=== PATIENT | male | born 1965 | race African-American/Black ===

== ENCOUNTER 2023-09-04 11:31 | Outpatient (CLI) | payer MEDICAID ==
[2023-09-04 18:33] LABS: CREATININE,URINE 154.2 mg/dL
[2023-09-04 18:35] LABS: MICROALBUMIN,URINE < 0.7 mg/dL
[2023-09-04 21:06] LABS: ESTIMATED AVERAGE GLUCOSE 128 mg/dL (70-100); HEMOGLOBIN A1c% 6.1 % (4.27-6.07)
== END 2023-09-04 11:32 | disposition home or self-care (01) ==
LOC: LAB.N 11:31
PROVIDERS: ATTEND Nurse Practitioner
DX: E11.9 Type 2 diabetes mellitus without complications (principal)
CPT/HCPCS: 36415; 82043; 82570; 83036

== ENCOUNTER 2023-10-23 10:37 | Outpatient (CLI) | payer MEDICAID ==
[2023-10-23 13:40] LABS: CREATININE,URINE 173.4 mg/dL
[2023-10-23 14:21] LABS: MICROALBUMIN,URINE < 0.7 mg/dL
== END 2023-10-23 10:38 | disposition home or self-care (01) ==
LOC: LAB.N 10:37
PROVIDERS: ATTEND Nurse Practitioner
DX: E11.9 Type 2 diabetes mellitus without complications (principal)
CPT/HCPCS: 82043; 82570

== ENCOUNTER 2023-11-06 07:49 | Day surgery (SDC) | payer BC, MEDICAID ==
[2023-11-06] MEDS ORDERED: PROPOFOL 500 MG/50 ML 500 MG/50 ML VIAL ONE (08:19)
[2023-11-06] MEDS ORDERED: MIDAZOLAM 2 MG/2 ML VIAL ONE (08:21)
[2023-11-06] MEDS: LACTATED RINGERS 1,000 ML IV ONE ×2 (08:25→09:00)
--- NOTE | 2023-11-06 08:33 | ANESTHESIA ---
Pre-Anesthesia VS, & Labs - Diagnosis SCREENING - Procedure COLONOSCOPY Vital Signs: Temp Pulse Resp BP Pulse Ox O2 Flow Rate 36.0 C L 72 14 114/81 H 100 11/06/23 08:00 11/06/23 08:00 11/06/23 08:00 11/06/23 08:00 11/06/23 08:00 Height: 5 ft 9 in Weight (kg): 81.1 kg Body Mass Index: 26.4 BMI Classification: Overweight - NPO Last Fluid Intake: 0430 Last Food Intake: >8HR - Lab Results Current Lab Results: Laboratory Tests 11/06/23 08:20: POC Whole Bld Glucose 119 H Home Medications and Allergies Home Medications: Ambulatory Orders Atorvastatin [Lipitor] 20 mg PO QPM 11/05/23 Lactobacillus Combination No.4 [Probiotic] 1 each PO 11/05/23 [place]-3S/Dha/Epa/Fish Oil [Fish Oil 1,200 mg Softgel] 1 cap PO 11/05/23 Iron Fum,Ps/Folic Acid/Vitc/B3 [Iron Folate-F Capsule] 1 each PO DAILY 09/04/23 Mv-Min/Folic/K1/Lycopen/Lutein [Centrum Men 50 Plus Minis Tab] 1 each PO DAILY 09/04/23 Red Beet Root/Sour [place] Ext [Beet Root-Tart [place] Gummy] 1 each PO DAILY 09/04/23 Tumeric/Ging/[place]/Oreg/Capryl [Candicidal Capsule] 1 each PO DAILY 09/04/23 metFORMIN [Glucophage] 500 mg PO BIDWM 09/04/23 Atorvastatin [Lipitor] 20 mg PO QPM 11/05/23 Lactobacillus Combination No.4 [Probiotic] 1 each PO 11/05/23 [place]-3S/Dha/Epa/Fish Oil [Fish Oil 1,200 mg Softgel] 1 cap PO 11/05/23 Allergies/Adverse Reactions: Allergies Allergy/AdvReac Type Severity Reaction Status Date / Time No Known Drug Allergies Allergy Verified 09/04/23 10:52 Anes History & Medical History - Anesthetic History Anesthesia Complications: reports: No previous complications Family history of Anesthesia Complications: Denies - Medical History Cardiovascular: reports: None (DENIES CP/SOB; ACTIVE; IS A [employer]), High cholesterol Pulmonary: reports: None Gastrointestinal: reports: None Urinary: reports: None Musculoskeletal: reports: None Endocrine/Autoimmune: reports: Type 2 diabetes Skin: reports: None Smoking Status: Never smoker Psychosocial: reports: No issues indicated Results - EKG Results EKG Comparison: Reviewed EKG Exam General: Alert Dental: WNL Mouth Openin Fingerbreadth Neck Mobility: Normal Mallampati classification: II Thyromental Distance: 4-6 cm Respiratory: Lungs clear Cardiovascular: Regular rate Plan Anesthesia Type: Total IV Consent for Procedure(s) Verified and Reviewed: Yes Code Status: Attempt Resuscitation ASA classification: 2-Mild systemic disease Is this case an emergency?: No
[2023-11-06 09:47] VITALS: BP 120/81; O2SAT 99
--- NOTE | 2023-11-06 09:58 | ANESTHESIA POST OP EVALUATION ---
Anesthesia Post Eval - Post Anesthesia Eval Vitals: Last Vital Signs Temp 36.1 C L 11/06/23 09:30 Pulse 81 11/06/23 09:30 Resp 16 11/06/23 09:30 BP 120/81 H 11/06/23 09:30 Pulse Ox 99 11/06/23 09:30 O2 Flow Rate CV Function Including HR & BP: Stable Pain Control: Satisfactory Nausea & Vomiting: Negative Mental Status: Baseline Respiratory Status: Airway Patent Hydration Status: Satisfactory Anesthesia Complications: None
== END 2023-11-06 07:50 | disposition home or self-care (01) ==
LOC: SDS 07:49
PROVIDERS: ATTEND Surgery
DX: Z12.11 Encounter for screening for malignant neoplasm of colon (principal); E11.9 Type 2 diabetes mellitus without complications; Z79.84 Long term (current) use of oral hypoglycemic drugs
CPT/HCPCS: 45378; J7120

== ENCOUNTER 2024-01-26 07:23 | Outpatient (CLI) | payer BC ==
[2024-01-26 12:51] LABS: CHOL/HDL RATIO 2.3 (<5.0); CHOLESTEROL 103 mg/dL; HDL CHOLESTEROL 44 mg/dL; LDL CHOLESTEROL,CALCULATED 50 mg/dL; LDL/HDL RATIO 1.1 (<3.6); TRIGLYCERIDES 45 mg/dL; VLDL CHOLESTEROL 9 mg/dL
[2024-01-26 13:36] LABS: ESTIMATED AVERAGE GLUCOSE 123 mg/dL (70-100); HEMOGLOBIN A1c% 5.9 % (4.27-6.07)
== END 2024-01-26 07:24 | disposition home or self-care (01) ==
LOC: LAB.N 07:23
PROVIDERS: ATTEND Nurse Practitioner
DX: Z51.81 Encounter for therapeutic drug level monitoring (principal); E11.9 Type 2 diabetes mellitus without complications; E78.5 Hyperlipidemia, unspecified; Z79.899 Other long term (current) drug therapy
CPT/HCPCS: 36415; 80061; 83036; 83721